=== PATIENT | female | born 1975 | race Caucasian/White ===

== ENCOUNTER → 2018-06-10 | Outpatient (CLI) | payer BC, OTHER | LOC: FIMAGING 08:47 | PROVIDERS: ATTEND Internal Medicine | DX: Z12.31 Encounter for screening mammogram for malignant neoplasm of breast (principal) ==

== ENCOUNTER → 2018-07-15 | Outpatient (CLI) | payer OTHER | LOC: FIMAGING 07:39 | PROVIDERS: ATTEND Internal Medicine | DX: E04.2 Nontoxic multinodular goiter (principal) ==

== ENCOUNTER → 2018-07-19 | Outpatient (CLI) | payer OTHER ==
[~2018-07-19] MED LIST: LIDOCAINE 1% 300 MG/30 ML SDV ONE
== END ==
LOC: FIMAGING 08:08
PROVIDERS: ATTEND Internal Medicine
PROC: 0G9K3ZX Drainage of Thyroid Gland, Percutaneous Approach, Diagnostic (ICD-10-PCS; principal; 2018-07-19)
DX: E04.1 Nontoxic single thyroid nodule (principal)

== ENCOUNTER 2018-09-29 09:19 | Observation (INO) | payer OTHER ==
[2018-09-29] MEDS ORDERED: LR 1,000 ML IV ONE (09:56)
[2018-09-29] MEDS ORDERED: MIDAZOLAM 2 MG/2 ML VIAL IVP ONE (10:13)
[2018-09-29] MEDS ORDERED: DEXAMETHASONE 4 MG/ML VIAL IVP PRN (10:13)
[2018-09-29] MEDS ORDERED: HYDROCODONE/APAP 5/325 TAB PO PRN (10:13)
[2018-09-29] MEDS ORDERED: ACETAMINOPHEN 500 MG TAB PO PRN (10:13)
[2018-09-29] MEDS ORDERED: oxyCODONE IR 5 MG TAB PO PRN (10:13)
[2018-09-29] MEDS ORDERED: NALOXONE HCL 0.4 MG/ML INJ IVP PRN (10:13)
[2018-09-29] MEDS ORDERED: ALBUTEROL 3 ML DEYVIAL IH PRN (10:13)
[2018-09-29] MEDS ORDERED: LR 500 ML IV PRN (10:13)
--- NOTE | 2018-09-29 10:15 | PDANEPAE ---
ANE History of Present Illness L Thyroid Nodule ANE Past Medical History - Cardiovascular History Hx Hypertension: No Hx Arrhythmias: No Hx Chest Pain: No Hx Coronary Artery / Peripheral Vascular Disease: No Hx CHF / Valvular Disease: No Hx Palpitations: No - Pulmonary History Hx COPD: No Hx Asthma/Reactive Airway Disease: No Hx Recent Upper Respiratory Infection: No Hx Oxygen in Use at Home: No Hx Sleep Apnea: No Sleep Apnea Screening Result - Last Documented: Negative Pulmonary History Comment: ASTHMA - INHALER - Neurologic History Hx Cerebrovascular Accident: No Hx Seizures: No Hx Dementia: No - Endocrine History Hx Diabetes: Yes - Renal History Hx Renal Disorders: No - Liver History Hx Hepatic Disorders: No - Neurological & Psychiatric Hx Hx Neurological and Psychiatric Disorders: No - Cancer History Hx Cancer: Yes - Congenital Disorder History Hx Congenital Disorders: No - Other Health History Other Health History: CELIAC DISEASE - Chronic Pain History Chronic Pain: Yes - Surgical History Prior Surgeries: TOE SURGERIES LUCAS. 1996 SEPTOPLASTY & TURBINATE. LASIK SURG. C SECTION X2. TUBAL LIGATION & HERNIA REPA ANE Review of Systems Review of Systems: - Exercise capacity METS (RN): 5 METS ANE Patient History - Allergies Allergies/Adverse Reactions: gluten Allergy (Verified 09/09/18 10:16) - Home Medications Home Medications: Fexofenadine HCl [Trudi Allergy] 180 mg PO HS 12/05/13 [Last Taken Unknown] Azelastine/Fluticasone [Dymista Nasal [place]] 1 spray NS BID 08/03/15 [Last Taken Unknown] Ibuprofen [Motrin (*)] 200 mg PO DAILY PRN 09/09/18 [Last Taken Unknown] Ketotifen Fumarate [Zaditor] 1 ml EACHEYE BID 09/09/18 [Last Taken Unknown] Levonorgestrel-Ethin Estradiol [Lessina] 1 each PO DAILY 09/09/18 [Last Taken Unknown] Albuterol [Proventil Inhaler HFA (*)] 1 - 2 puffs IH Q4H PRN 09/19/18 [Last Taken Unknown] - Smoking Hx Smoking Status: Never smoked - Family Anes Hx Family Hx Anesthesia Complications: NEG ANE Labs/Vital Signs - Vital Signs Height: 162.56 cm Weight: 62.596 kg ANE Physical Exam - Airway Neck exam: FROM Mallampati Score: Class 2 Mouth exam: normal dental/mouth exam - Pulmonary Pulmonary: clear to auscultation - Cardiovascular Cardiovascular: regular rate and rhythym - ASA Status ASA Status: II ANE Anesthesia Plan Anesthesia Plan: general endotracheal anesthesia
[2018-09-29] MEDS ORDERED: ceFAZolin 2 GM/DEXTROSE 100 ML IV ONE (10:17)
--- NOTE | 2018-09-29 10:17 | PDHPUP ---
History & Physical Update H&P update statement: This history and physical update is based on an assessment of the patient which was completed after admission or registration (within 24 hours), but prior to the surgery/procedure. H&P update: H&P reviewed & patient examined, no change in patient's condition since H&P completed
[2018-09-29] MEDS ORDERED: fentaNYL 100 MCG/2 ML INJ ONE ×2 (10:20→12:19)
[2018-09-29] MEDS ORDERED: PROPOFOL 200 MG/20 ML VIAL ONE (10:20)
[2018-09-29] MEDS ORDERED: LIDO/EPI 1% **Not for Epidural 20 ML MDV ONE (10:31)
[2018-09-29] MEDS ORDERED: BACITRACIN ZINC 0.5 OZ OINTTUBE TP ONE (10:32)
[2018-09-29] MEDS ORDERED: DEXAMETHASONE 4 MG/ML VIAL ONE (11:06)
[2018-09-29] MEDS ORDERED: ONDANSETRON 4 MG/2 ML VIAL ONE ×2 (11:06→12:20)
[2018-09-29] MEDS ORDERED: RANITIDINE 50 MG/2 ML VIAL ONE (11:06)
[2018-09-29] MEDS ORDERED: ROCURONIUM 50 MG/5 ML VIAL ONE (11:06)
[2018-09-29] MEDS ORDERED: PROMETHAZINE HCL 25 MG/ML INJ ONE (12:20)
[2018-09-29] MEDS: ONDANSETRON 4 MG/2 ML VIAL IVP PRN ×2 (12:24→12:50)
--- NOTE | 2018-09-29 12:25 | POSTANESTH ---
Post Anesthetic Evaluation Cardiovascular Status: Normal, Stable Respiratory Status: Normal, Stable Level of Consciousness/Mental Status: Can Participate in Eval, Mildly Sleepy, Arousable Pain Control: Adequate, Prn Tx Ordered Nausea/Vomiting Control: Inadeq, Add Tx Reqired
[2018-09-29] MEDS: PROMETHAZINE HCL 25 MG/ML INJ IVP PRN ×2 (12:27→12:53)
[2018-09-29] MEDS: fentaNYL 100 MCG/2 ML INJ IVP PRN ×3 (12:28→12:51)
[2018-09-29] MEDS ORDERED: MEPERIDINE 25 MG/0.5 ML AMP ONE (12:33)
[2018-09-29] MEDS ORDERED: HYDROmorphONE/DILAUDID 2 MG/ML INJ ONE (12:44)
[2018-09-29] MEDS: HYDROmorphONE/DILAUDID 2 MG/ML INJ IVP PRN ×3 (12:46→14:01)
[2018-09-29] MEDS ORDERED: ONDANSETRON 4 MG/2 ML VIAL IVP PRN (13:11)
[2018-09-29] MEDS ORDERED: MEPERIDINE 25 MG/0.5 ML AMP IVP ONE (13:15)
[2018-09-29] MEDS ORDERED: D5W 1/2 NS W/ 20 KCl/L 1,000 ML IV SCH (13:15)
[2018-09-29] MEDS: OXYCODONE/APAP 5/325 TAB PO PRN ×3 (14:57→23:06)
--- NOTE | 2018-09-29 17:40 | SOAPPROG ---
<Shukri Mendenhall - Last Filed: 09/29/18 17:36> SOAP Progress Note Assessment/Plan: Assessment: S/P Jerardo left thyroidectomy Doing well Plan: Pt will d/c tomorrow if stable. 09/29/18 17:37 Subjective: Pt states voice sounds good. Minimal pain mostly with swallowing. Overall reports to feeling good Objective: Vital Signs Temp Pulse Resp BP Pulse Ox 36.9 C 80 12 110/66 96 09/29/18 16:45 09/29/18 16:45 09/29/18 16:45 09/29/18 16:45 09/29/18 16:45 09/28/18 09/29/18 09/30/18 05:59 05:59 05:59 Intake Total 1025 Output Total 550 Balance 475 Pt afebrile, VSS voice strong, Wound appears intact, SHAJI with minimal drainage ICD10 Worksheet Patient Problems: Problems Problem Status Onset Thyroid mass Acute - ICD10 Problem Qualifiers (1) Thyroid mass <Jordy Cisneros - Last Filed: 09/29/18 19:36> SOAP Progress Note Assessment/Plan: Assessment: Plan: Objective: Vital Signs Temp Pulse Resp BP Pulse Ox 36.9 C 82 18 108/65 97 09/29/18 17:45 09/29/18 17:45 09/29/18 17:45 09/29/18 17:45 09/29/18 17:45 09/28/18 09/29/18 09/30/18 05:59 05:59 05:59 Intake Total 2125 Output Total 760 Balance 1365
--- NOTE | 2018-09-29 19:50 | POSTOPPROG ---
Post Op Note Date of Operation: 09/29/18 Surgeon: Jordy Cisneros Public Services Librarian: Dr Carlito Layton Anesthesiologist: Wm Skinner Anesthesia: GET(General Endotracheal) Pre-op Diagnosis: left Thyroid mass Post-op Diagnosis: same Procedure: left hemithyroidectomy Findings: none Inf/Abcess present in the surg proc area at time of surgery?: No Depth: Deep Incisional (Fascial) EBL: Minimal Total fluids administered: 800 Complications: none Drains: Hemovac
[2018-09-30] MEDS: OXYCODONE/APAP 5/325 TAB PO PRN ×2 (03:17→07:36)
--- NOTE | 2018-09-30 06:46 | GOP ---
DATE OF OPERATION: 09/29/2018 SURGEON: Richard Cisneros MD ALLIED HEALTH PROFESSIONAL: Carlito Layton M.D. ANESTHESIA: General endotracheal. PREOPERATIVE DIAGNOSIS: Left thyroid mass with history of discomfort in left neck. POSTOPERATIVE DIAGNOSIS: PROCEDURE PERFORMED: Left hemithyroidectomy. FINDINGS: Grossly normal left thyroid lobe, noted on previous ultrasound to have a 1.5 x 1.5 cm mass . ESTIMATED BLOOD LOSS: 30 mL. DESCRIPTION OF PROCEDURE: The patient was placed on the operating table in supine position. After i nduction of adequate general endotracheal anesthesia, sterile draping was performed. The anterior ne ck was prepped and draped in the standard manner for a thyroidectomy. An incision was then planned a nd created in a naturally-occurring skin crease overlying the thyroid region. The incision extended for approximately 2.5 cm to either side of the midline. Prior to creation of the incision, the area surrounding the proposed incision was infiltrated utilizing 1% lidocaine with 1:100,000 parts of epin ephrine. Once the incision had been created, it was carried down through the soft tissues and then t hrough the platysma muscle. Flaps were elevated superiorly and inferiorly in a subplatysmal plane. The vertical midline of the neck was identified. The vertical midline was then incised and dissectio n was carried deeper in the midline, until the thyroid had been reached. The strap muscles were then reflected off the left thyroid lobe. Dissection then proceeded further superiorly, and the thyroid and superior thyroid pedicle was encountered. This was dissected and clamped significantly inferiorl y to the superior laryngeal nerve. The proximal portion was tied with a 2-0 silk suture ligature, as the distal portion was tied with 2-0 silk suture. As dissection proceeded along the lateral aspect of the thyroid, the superior parathyroid on the left was encountered. This was then dissected free f rom the left thyroid lobe, maintaining its vascular supply. Dissection then proceeded further latera lly and inferiorly. The inferior thyroid gland was identified. This was then dissected free from th e thyroid, leaving its vascular pedicle intact. Dissection then proceeded along the posterior aspect of the thyroid, and then dissection proceeded into the region of the cricoarytenoid joint where the recurrent laryngeal nerve was identified without difficulty. The nerve was then dissected from dista l to proximal, maintaining its integrity so that it could be well visualized throughout the remainder of the dissection. As the dissection proceeded in the region of Dang's ligament, the soft tissues anterior to the recurrent laryngeal nerve were treated with the bipolar electrocautery and then sharp ly divided while keeping the nerve under direct visualization. Dissection of the thyroid tissue off the trachea was performed. The inferior vascular pedicle on the left had been clamped, cut, and tied with 2-0 silk ties. Once the dissection had been carried to the level of the isthmus, the pyramidal lobe of the thyroid was identified. This was then dissected in continuity with the left thyroid lob e. The pyramidal lobe was clamped and cut. It was then tied with 2-0 silk ties. Once this had been completed and the thyroid isthmus was encountered, the isthmus was clamped. The left thyroid lobe w as then transected and the left thyroid lobe was then handed off. A running 3-0 Vicryl suture was th en placed in the thyroid isthmus to provide hemostasis. Once this had been completed, the wound was reexamined. A few small bleeders were treated with the bipolar electrocautery and, once absolute hem ostasis had been obtained, a 10-Colombian drain was placed into the wound. This was passed from the rig ht lateral aspect of the wound and then draped into the left thyroid bed. This was sutured into plac e with a single 2-0 silk suture. Once this had been completed, the strap musculature was reapproxima lizzy in the midline utilizing interrupted 3-0 Vicryl sutures. A deep layer closure of the wound was p erformed utilizing 5-0 Monocryl sutures. This approximated the skin, which was then closed with it w ith a running locked 5-0 Prolene suture. At this point, bacitracin was applied. The wound was clean sed and a sterile pressure dressing was applied around the neck utilizing fluffs and a 4-inch Kevin. At this point, the procedure was terminated. The patient was then awakened and transferred to posta nesthesia recovery area in stable condition. FLUID REPLACEMENT: 800 mL. COMPLICATIONS: None. /[id number]/MODL
[2018-09-30 07:30] VITALS: BP 118/66
--- NOTE | 2018-09-30 09:52 | PDDCSUM ---
Discharge Summary Discharge Summary: Pt POD#1 s/p hemithyroidectomy. Doing well. Pain controlled. Voice strong. Okay for d/c. Follow up in clinic next week for suture removal
== END 2018-09-30 11:08 | disposition home or self-care (01) ==
LOC: F3N 09:19 → F3E 14:03
PROVIDERS: ADMIT Otolaryngology; ATTEND Otolaryngology
PROC: 0GTG0ZZ Resection of Left Thyroid Gland Lobe, Open Approach (ICD-10-PCS; principal; 2018-09-29 10:45)
DX: D34 Benign neoplasm of thyroid gland (principal); J45.909 Unspecified asthma, uncomplicated; K90.9 Intestinal malabsorption, unspecified
CPT/HCPCS: 60220; G0378; J0690; J1100; J1170; J2175; J2250; J2405; J2550; J2704; J2780; J3010